=== PATIENT | male | born 1980 | race African-American/Black ===

== ENCOUNTER 2025-06-07 15:00 | Outpatient (REF) | payer OTHER, SELFPAY ==
--- OUTSIDE RECORDS SUMMARY | 2025-06-02 21:34 | XMS_ITS | Encounter Summary ---
Author Organization [facility] Address [address] [place] [address] Care Team Providers Care Valve And Regulator Repairer Name Role Phone Physician, No Pcp Primary Care Provider Unavaila ble Reason for Visit * Reason Comments Hand Injury Encounter Details Date Type Department Care Team (Late st Contact Info) Description 06/02/2025 10:34 PM EDT - 06/03/2025 12:[address] [facility] Emergency [address] [place] [id number] Clover Bains MD [address] [place] [address] Puncture wound of left hand without foreign body, initial encounter (Primary Dx) Discharge Disposition: Home or Self Care Social History Tobacco Use Types Packs/Day Years Used Date Smoking Tobacco: Never Assessed Sex and Gender Information Value Date Recorded Sex Assigned at Not on file Legal Sex Male 10:32 PM EDT Gender Identity Not on file Sexual Orientation Not on file documented as of this encounter Last Filed Vital Signs Vital Sign Reading Time Taken Comments Blood Pressure 131/84 06/02/2025 10:38 PM EDT Pulse 78 06/02/2025 10:38 PM EDT Temperature 36.3 C (97.3 F) 06/02/2025 10:38 PM EDT Respiratory Rate 16 06/02/2025 10:38 PM EDT Oxygen Saturation 98% 06/02/2025 10:38 PM EDT Inhaled Oxygen Concentration - - Weight 99.8 kg (220 lb) 06/02/2025 10:38 PM EDT Height 177.8 cm (5' 10 ) 06/02/2025 10:38 PM EDT Body Mass Index 31.57 06/02/2025 10:38 PM EDT documented in this encounter Functional Status * Calculated C-SSRS Risk Score (Lifetime/Recent) Answer Date of Assessment Author No Risk Indicated 06/02/2025 10:38 PM EDT Jael Palmer RN * [place] Suicide Severity Rating Scale (Screener/Recent Self-Report) Question Answer Date of Assessment Author 1. Wish to be (Past 1 Month) No 025 10:38 PM EDT Jael Camarillo RN documented as of this encounter Discharge Instructions * Discharge Instructions* Clover Bains MD - 06/02/2025 11:53 PM EDT Your work-up in the emergency department showed a puncture wound to your left hand . At this time you do not require admission to the hospital. You should follow-up with a primary care physician as soon as possible to review your labs/imaging and discuss any non-emergent findings from your visit today that may require further testing as an outpatient. Contact information to any follow up provider/specialist is provided above. Call as soon as possible to coordinate follow up. If you were prescribed any medications, please take as directed. * Attachments The following attachments cannot be sent through Care Everywhere. * Puncture Wounds (Moroccan) * Wound Check (Moroccan) documented in this encounter Medications at Time of Discharge neomycin-bacitra juan ramon-polymyxin B (NEOSPORIN) ointment Apply topically 2 (two) times a day for 10 days. 15 g 06/02/2025 documented as of this encounter Ordered Prescriptions Prescription Sig Dispense Quantity Refills Last Filled Start Date End Date neomycin-bacitraci n-polymyxin B (NEOSPORIN) ointment Apply topically 2 (two) times a day for 10 days. 15 g 06/02/2025 documented in this encounter Discharge Disposition Disposition Code Departure Means Destination Comment s Home or Self Care Patient seen and dcd by provider. This RN did not take part in patient's care. documented in this encounter Progress Notes * Jael Camarillo RN - 06/02/2025 10:35 PM EDT Pt states he shot his left hand with a nail gun today. Pt states nail was about 3.5in long. Pt states nail went into the palm of his hand, denies nail penetrating through hand/no exit wound. Pt states he removed the nail himself. Pt currently has dressing on hand. * Clover Bains MD - 06/02/2025 10:32 PM EDT Patient Name: Cody Parrish Date and Time of Assessment: 10:49 PM EDT 06/02/25 Patient : 1980 Patient's PMD: No primary care provider on file. Chief Complaint Patient presents with ??? Hand Injury HPI: 45 yo male presents after left hand puncture wound. He accidentally puncture his left hand with a nail gun. Nail went through the lateral thumb area, not through and through. He does not recall a recent tetanus shot. PHYSICAL EXAM: Visit Vitals BP 131/84 (BP Location: Right arm, Patient Position: Sitting) Pulse 78 Temp 36.3 ??C (97.3 ??F) (Oral) Resp 16 Ht 1.778 m (70 ) Wt 99.8 kg (220 lb) SpO2 98% BMI 31.57 kg/m?? BSA 2.17 m?? General: calm, cooperative HEENT: NC/AT Cardio: RRR, no MRG Resp: no respiratory distress, lungs CTAB Abd: Soft, non-tender, non-distended Ext: No edema, warm, well perfused Neuro: AAOx3, no focal deficits MSK: Left hand with small puncture on thenar eminence, no foreign body palpated, minimal swelling or bleeding MEDICAL DECISION MAKING: Patient presents today for nail gun injury on hand Vital signs reviewed On initial evaluation, patient is in nad Physical exam notable for above. Differential diagnosis: Puncture wound, foreign body, laceration, deep tendon/bony injury Initial Plan: Based on the patient's presentation today, we will obtain xray, update tetanus, clean wound and discharge with topical antibiotics. Considered oral antibiotics but wound appears clean, minimal opening/damage, minimal swelling. Cleaned wound with alcohol swab. Will encourage patient to have wound reevaluated in 2 days to see if he needs more than topical antibiotics. Encouraged using peroxide or ot her implement to continue cleaning at home. Social determinants of health considered including housing follow-up social and financial support Please see ED course for my interpretation of lab results and imaging which I independently reviewed. Updates in patient care also noted accordingly. EMERGENCY DEPARTMENT COURSE AND TREATMENT: Available prior records were reviewed. Patient history and allergies reviewed. Nursing note reviewed. The diagnostic results contained in this document reflect the information available to the physician at the time of the patient encounter. Final results, when completed, will be found in the patient's hospital chart. Medications - No data to display Clinical Impressions as of 06/02/252355 Puncture wound of left hand without foreign body, initial encounter Procedures CLINICAL IMPRESSION: Final diagnoses: None DISPOSITION: Data Unavailable Clover Bains MD 06/02/252249 Clover Bains MD 06/02/252299 Clover Bains MD 06/02/252354 documented in this encounter Plan of Treatment Not on file documented as of this encounter Procedures Procedure Name Priority Date/Time Associated Diagnosis Comments XR HAND 3+ VIEWS LEFT STAT 06/02/2025 11:46 PM EDT documented in this encounter Results * XR Hand 3+ Views Left (06/02/2025 11:46 PM EDT) Anatomical Region Laterality Modality Upper Extremities, Hand Left [facility] 06/03/2025 8:18 AM EDT Impressions 06/03/2025 8:21 AM EDT There is no evidence of bony injury. Soft tissue swelling with lucencies consistent with a puncture wound are present between the first and second metacarpals. There is no radiopaque foreign body. Code 37389 -------- FINAL REPORT -------- Dictated By: Bernard Diaz Dictated Date: 06/03/2025 08:18 ET Assigned Physician: Bernard Diaz Reviewed and Electronically Signed By: Bernard Diaz Signed Date: 06/03/2025 08:21 ET Workstation ID: [id number] Transcribed By: Self Edit Transcribed Date: 06/03/2025 08:18 ET Narrative 06/03/2025 8:21 AM EDT HISTORY: The patient is a 45-year-old male with a nail gun injury to the palm of his left hand. FINDINGS: AP, lateral, and oblique views of the left hand are obtained. The study demonstrates no fracture, dislocation, arthritic change, or other bony abnormality. There is swelling and irregularity in the soft tissues between the first and second metacarpals, with soft tissue lucencies, consistent with a puncture wound. No radiopaque foreign body is seen. Procedure Note Bernard Diaz MD - 06/03/2025 HISTORY: The patient is a 45-year-old male with a nail gun injury to thepalm of his left hand. FINDINGS: AP, lateral, and oblique views of the left hand are obtained.The study demonstrates no fracture, dislocation, arthritic change, orother bony abnormality. There is swelling and irregularity in the softtissues between the first and second metacarpals, with soft tissuelucencies, consistent with a puncture wound. No radiopaque foreign body isseen. IMPRESSION: There is no evidence of bony injury. Soft tissue swelling with lucenciesconsistent with a puncture wound are present between the first and secondmetacarpals. There is no radiopaque foreign body. Code 32686 -------- FINAL REPORT -------- Dictated By: Bernard Diaz Dictated Date: 06/03/2025 08:18 ET Assigned Physician: Bernard Diaz Reviewed and Electronically Signed By: Bernard Diaz Signed Date: 06/03/2025 08:21 ET Workstation ID: [id number] Transcribed By: Self Edit Transcribed Date: 06/03/2025 08:18 ET us Clover Bains MD IMG XR PROCEDURES Final Result documented in this encounter Visit Diagnoses Diagnosis Puncture wound of left hand without foreign body, initial encounter- Primary documented in this encounter Care Teams Valve And Regulator Repairer Relationship Specialty Start Date End Date Physician, No Pcp PCP - General 06/02/25 documented as of this encounter
--- OUTSIDE RECORDS SUMMARY | 2025-06-07 16:42 | XMS_ITS | Patient Health Record ---
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
--- OUTSIDE RECORDS SUMMARY | 2025-06-07 16:42 | XMS_ITS | Clinical Summary ---
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 15 g 06/12/20 25 Active Encounters Date Type Department Care Team Description 06/02/2025 10:34 PM EDT - 06/03/2025 12:[address] [facility] [address] [place] [address] Clover Bains MD Puncture wound of left hand without foreign body, initial encounter (Primary Dx) Discharge Disposition: Home or Self Care from Last 3 Months Immunizations Immunization Administration Dates Next Due Tdap Tetanus diptheria acell ular pertussis (Boostrix; Adacel) 7yo and older 06/02/2025 Social History Tobacco Use Types Packs/Day Years Used Date Smoking Tobacco: Never Assessed Sex and Gender Information Value Date Recorded Sex Assigned at Not on file Legal Sex Male 10:32 PM EDT Gender Identity Not on file Sexual Orientation Not on file Last Filed Vital Signs Vital Sign Reading [...] Mass Index 31.57 06/02/2025 10:38 PM EDT Plan of Treatment Health Maintenance Due Date Last Done Comments Hepatitis B Vaccines (1 of 3 - 19+ 3-dose series) 02/03/2000 HPV Vaccines (1 - 3-dose SCD M series) 02/03/2008 Depression Screening 08/05/2024 COVID-19 Vaccine (1 - 2023-2 5 season) 2025 Influenza Vaccine (#1) 2025 Cholesterol Screening (Lipid Panel) 06/02/2025 HIV Screening 06/02/2025 Hepatitis C Screening 06/02/2025 Social Influencers of Health Screening 06/02/2025 DTaP,Tdap,and Td Vaccines (2 - Td or Tdap) 06/02/2035 06/02/2025 RSV Immunization Adult Patie nts (1 - 1-dose 75+ series) 02/03/2056 HIB Vaccines Aged Out No longer eligi ble based on patient's age to complete this topic Hepatitis A Vaccines Aged Out No long er eligible based on patient's age to complete this topic IPV Vaccines Aged Out No longer eligi ble based on patient's age to complete this topic MMR Vaccines Aged Out No longer eligi ble based on patient's age to complete this topic Meningococcal ACWY Vaccine Aged Out N o longer eligible based on patient's age to complete this topic Meningococcal B Vaccine Aged Out No l onger eligible based on patient's age to complete this topic Pneumococcal Vaccine: Pediat rics (0 to 5 Years) and At-Risk Patients (6 to 49 Years) Aged Out No longer eligi ble based on patient's age to complete this topic RSV Immunization Patients Un tamia 20 months Aged Out No longer eligible b ased on patient's age to complete this topic Varicella Vaccines Aged Out No longer eligible based on patient's age to complete this topic Procedures Procedure Name Priority Date/Time Associated Diagnosis Comments XR HAND 3+ VIEWS LEFT STAT 06/02/2025 11:46 PM EDT from Last 3 Months Results * XR Hand 3+ Views Left (06/02/2025 11:46 PM EDT) Anatomical Region Laterality Modality Upper Extremities, Hand [facility] 06/03/2025 8:18 AM EDT Impressions 06/03/2025 8:21 AM EDT There is no evidence of bony injury. Soft tissue swelling with lucencies consistent with a puncture wound are present between the first and second metacarpals. There is no radiopaque foreign body. Code 16180 -------- FINAL REPORT -------- Dictated By: Bernard Diaz Dictated Date: 06/03/2025 08:18 ET Assigned Physician: Bernard Diaz Reviewed and Electronically Signed By: Bernard Diaz Signed Date: 06/03/2025 08:21 ET Workstation ID: [id number] Transcribed By: Self Edit Transcribed Date: 06/03/2025 [...] There is no radiopaque foreign body. 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
[2025-06-08 05:33] LABS: Syphilis Screen Nonreactive (Nonreactive)
[2025-06-08 10:13] LABS: CT PCR Urine NOT DETECTED (Not Detect.); NG PCR Urine NOT DETECTED (Not Detect.)
[2025-06-13 11:09] LABS: Testosterone, Free 40.5 pg/mL (35.0-155.0)
== END 2025-06-07 15:01 | disposition home or self-care (01) ==
LOC: HO.HKASLDS 15:00
PROVIDERS: PCP Student in an Organized Health Care Education/Training Program; Visit Provider Student in an Organized Health Care Education/Training Program
DX: Z00.00 Encounter for general adult medical examination without abnormal findings (principal); R10.9 Unspecified abdominal pain; F17.210 Nicotine dependence, cigarettes, uncomplicated; N52.9 Male erectile dysfunction, unspecified; G47.00 Insomnia, unspecified; R06.83 Snoring
CPT/HCPCS: 84402; 84403; 86780; 87491; 87591; 96127; 99202

== ENCOUNTER 2025-06-07 15:00 | Outpatient (AMB) | payer OTHER, SELFPAY ==
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
[2025-06-07 15:08] VITALS: BP 133/74; PULSE 91; RESP 20; TEMP 36.6; O2SAT 94; BMI 35.5
== END 2025-06-07 15:27 | disposition home or self-care (01) ==
LOC: HO.HMCFMS 15:01
PROVIDERS: Visit Provider Student in an Organized Health Care Education/Training Program
DX: G47.00 Insomnia, unspecified (principal); R06.83 Snoring; F17.200 Nicotine dependence, unspecified, uncomplicated; N52.9 Male erectile dysfunction, unspecified

== ENCOUNTER 2025-06-23 13:31 | Outpatient (REF) | payer OTHER, SELFPAY ==
[2025-06-23 14:06] LABS: MANUAL DIFF FLAG NO
[2025-06-23 18:59] LABS: Hematocrit 45.1 % (42.0-52.0); Hemoglobin 14.9 g/dl (14.0-18.0); Imm Gran Abs Auto 0.01 X10*3/uL (0.00-0.03); Imm Gran Pct Auto 0.1 % (0.0-0.4); Lymphocytes Absolute Auto 3.2 X10*3/uL (1.2-4.9); Mean Corpuscular HGB Conc 33.0 g/dl (31.0-36.0); Mean Corpuscular Hemoglobin 31.0 pg (27.0-33.0); Mean Corpuscular Volume 93.8 fL (80.0-98.0); NRBC Abs Auto 0.000 X10*3/uL (0.0-0.012); NRBC Pct Auto 0.0 /100WBC (0.0-0.2); Platelet Count 266 X10*3/uL (160-400); Red Blood Count 4.81 X10*6/uL (4.60-5.80); White Blood Count 10.0 X10*3/uL (4.8-10.8)
[2025-06-23 19:34] LABS: Appearance Urine Clear; Glucose Urine UA Negative (Negative); PH 7.0 (5.0-9.0); Specific Gravity - Urine 1.020 (1.005-1.025)
[2025-06-23 20:04] LABS: Alanine Aminotransferase 30 U/L (0-40); Albumin Level 4.8 g/dL (3.5-5.0); Alkaline Phosphatase 62 U/L (39-117); Anion Gap 13 (12-20); Aspartate Amino Transferase 32 U/L (5-37); Blood Urea Nitrogen 9 mg/dL (9-16); Calcium 9.7 mg/dL (8.4-10.2); Carbon Dioxide 25 mmol/L (22-29); Chloride 105 mmol/L (96-108); Cholesterol 134 mg/dL (<200); Estimated Glomerular Filt Rate > 60; HDL Cholesterol 29 mg/dL (>40); Magnesium 2.3 mg/dL (1.6-2.6); Potassium 4.0 mmol/L (3.3-5.1); Sodium 139 mmol/L (135-145); Total Protein 7.5 g/dL (6.5-8.0); Triglycerides 94 mg/dL (<150)
[2025-06-23 20:20] LABS: Folate 6.4 ng/mL (> or = 4.0); Vitamin B12 455 pg/mL (200-900)
[2025-06-24 08:08] LABS: Hemoglobin A1C 147.0355 umol/L
[2025-06-24 09:10] LABS: HBS Num1 1.60 mIU/mL (0-7.99); HBsAGNum1 0.34 S/CO (0.00-0.99); HIV Num 1 0.05 S/CO (0.00-0.99); Hepatitis B Surface Antigen Negative (Negative); ~HepC Num1 0.08 S/CO (0.00-0.79); ~Hepatitis B Surface Antibody NONREACTIVE (Nonreactive); ~Hepatitis C Antibody Nonreactive (Nonreactive)
[2025-06-27 17:03] LABS: VITAMIN D (1,25 OH) D3 56 pg/mL; Vit D (1,25-Dihydroxy) Total 56 pg/mL (18-72); Vitamin D (1,25 OH) D2 <8 pg/mL
== END 2025-06-23 13:32 | disposition home or self-care (01) ==
LOC: HO.HKASLDS 13:31
PROVIDERS: PCP Student in an Organized Health Care Education/Training Program; Visit Provider Student in an Organized Health Care Education/Training Program
DX: Z13.9 Encounter for screening, unspecified (principal); Z28.82 Immunization not carried out because of caregiver refusal; R79.89 Other specified abnormal findings of blood chemistry; B35.3 Tinea pedis; B35.1 Tinea unguium; N52.9 Male erectile dysfunction, unspecified; G47.00 Insomnia, unspecified; F17.210 Nicotine dependence, cigarettes, uncomplicated; Z79.899 Other long term (current) drug therapy
CPT/HCPCS: 36415; 80053; 80061; 81003; 82607; 82652; 82746; 83036; 83735; 84443; 85025; 86706; 86803; 87340; 87389; 90471; 96127; 99212

== ENCOUNTER 2025-06-23 13:31 | Outpatient (AMB) | payer OTHER, SELFPAY ==
[2025-06-23 13:36] VITALS: BP 129/80; PULSE 83; RESP 20; TEMP 36.8; O2SAT 94; BMI 34.9
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
--- OUTSIDE RECORDS SUMMARY | 2025-06-24 01:33 | XMS_ITS | Patient Health Record ---
Author Organization [facility] Address [address] [place] [address] Care Team Providers Care Manager Market Name Role Phone NO, PCP Primary Care Provider [phone] Inga Santiago Unavailable [phone] Reason For Referral No Information Plan Of Treatment No Information Insurance Providers Payer Name Payer Address Payer Phone Subscriber Number Group Number Insured Name Patient Relationship to Insured Coverage Start Date Coverage End Date [place] Medicaid Standard [address] [place] [address] [id number] Cody Parrish Self - patient is the insured 4
== END 2025-06-23 13:56 | disposition home or self-care (01) ==
LOC: HO.HMCFMS 13:32
PROVIDERS: PCP Student in an Organized Health Care Education/Training Program; Visit Provider Student in an Organized Health Care Education/Training Program
DX: B35.3 Tinea pedis (principal); B35.1 Tinea unguium; R79.89 Other specified abnormal findings of blood chemistry; N52.9 Male erectile dysfunction, unspecified; G47.00 Insomnia, unspecified; F17.200 Nicotine dependence, unspecified, uncomplicated; Z23 Encounter for immunization

== ENCOUNTER 2025-07-08 16:05 | Outpatient (AMB) | payer OTHER, SELFPAY ==
--- NOTE | 2025-07-08 16:08 | A.OFFPC_ITS ---
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 Prediabetes: Recent lab work revealed a hemoglobin A1c of 5.7%, which falls into the prediabetic range. Low high-density lipoprotein cholesterol: The patient's HDL cholesterol is low at 29 mg/dL, below the recommended level of 40 mg/dL. Other lipid panel results are within normal limits, with a total cholesterol of 134 mg/dL, LDL of 87 mg/dL, and triglycerides of 94 mg/dL. Social History: - Nutrition: The patient reports eating eggs and cheese daily. - Exercise: He has been advised to incor porate some exercise. Diagnostic Results: - CBC: White blood cells, red blood cell s, hemoglobin, hematocrit, and platelets are normal. - CMP: Sodium, potassium, kidney functio n, and liver function tests are normal. - Hemoglobin A1c: 5.7%. - Lipid Panel: Total cholesterol 134 mg/ dL, LDL cholesterol 87 mg/dL, triglycerides 94 mg/dL, and HDL cholesterol 29 mg/dL. - Other labs: Calcium, magnesium, Vitami n D, folate, and thyroid levels are good. - Urinalysis: Negative. - Infectious Disease Screening: Negative for Hepatitis B, Hepatitis C, and HIV. Past Medical History Health Maintenance - The patient's recent lab work was revi ewed, including CBC, CMP, lipid panel, HgbA1c, vitamin D, folate, thyroid function, and infectious disease screening. - He was counseled on lifestyle modifica tions to address his prediabetes and low HDL, including increasing exercise and dietary changes such as eating more greens and reducing daily intake of eggs and cheese. - Follow-up is recommended in 3 months t o recheck lab values. 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 1. Little interest or pleasure in doing things: not at all 2. Feeling down, depressed, or hopeless: not at all 3. Trouble falling or staying asleep, or sleeping too much: not at all 4. Feeling tired or having little energy: not at all 5. Poor appetite or overeating: not at all 6. Feeling bad about yourself - or that you are a failure or have let yourself or your family down: not at all 7. Trouble concentrating on things, such as reading the newspaper or watching television: not at all 8. Moving or speaking so slowly that other people could have noticed. Or the opposite - being so fidgety or restless that you have been moving around a lot more than usual: not at all 9. Thoughts that you would be better off or of hurting yourself in some way: not at all Total score: 0 Depression Screening Interpretation: Negative Depression Screening Done: Yes 81246 - PHQ-9 Billing: Yes Source: Developed by Drs. Live Underwood, Svetlana Albrecht, Moises Candelario and colleagues, with an educational syd from [employer]. Thrive Questionnaire Date Thrive assessed: 06/07/25 I am a: Patient What is your living situation today?: I have a steady place to live Within the past 12 months, did the food you bought not last and you didn't have the money to get more?: Sometimes True Within the past 12 months, did you worry whether your food would run out before you got money to buy more?: Sometimes True Do you have trouble paying for medicines?: No Do you have trouble getting transportation to medical appointments?: No Do you have trouble paying your heating and electricity bill?: No Do you have trouble taking care of your child, family member or friend?: No Are you currently unemployed and looking for a job?: No Are you interested in more education?: No Currently or been in a relationship where the following occur: No concerns reported THRIVE Score: 2 AUDIT C Alcohol Use Questionnaire (AUDIT-C) 1. How often do you have a drink containing alcohol?: Monthly or less 2. How many drinks containing alcohol do you have on a typical day when you are drinking?: 1 or 2 3. How often do you have six or more drinks on one occasion?: Never Total Score: 1 DICK-7 AMB Questionnaire DICK-7 Date DICK - 7 assessed: 06/23/25 Feeling nervous, anxious, or on edge: 0 = Not at all Not being able to stop or control worryin = Not at all Worrying too much about different things: 0 = Not at all Trouble relaxin = Not at all Being so restless that it is hard to sit still: 0 = Not at all Becoming easily annoyed or irritable: 0 = Not at all Feeling afraid as if something awful might happen: 0 = Not at all Total DICK-7 score (0-4 normal; 5-9 mild; 10-14 moderate; 15-21 severe): 0 Source: Developed by Drs. Live Underwood, Svetlana Albrecht, Moises Candelario and colleagues, with an educational syd from [employer]. DICK-7 Assessment Billing DICK-7 Assessment Tool: DICK-7 Assessment 45528 Review of Systems Narrative Review of Systems - Constitutional: The patient reports feeling very good and denies any other complaints. 10-point ROS reviewed and negative except as noted in HPI Physical exam (Primary Care) Vital Signs: Last Vital Signs Temp 97.9 F 07/08/25 16:11 Pulse 75 07/08/25 16:11 Resp 20 07/08/25 16:11 BP 117/71 07/08/25 16:11 Pulse Ox 95 07/08/25 16:11 Oxygen Delivery Method Room Air 07/08/25 16:11 BMI result Body Mass Index 34.9 Tobacco/Smoking Status: Tobacco use Status Tobacco use date assessed 06/23/25 07/08/25 16:14 Patient Tobacco Use Status Current everyday Tobacco 07/08/25 16:14 Tobacco use type Cigarette 07/08/25 16:14 e-Cigarette/Vaping Use Never Used 07/08/25 16:14 PHQ-9: PHQ-9 Score PHQ-9: Total score 0 07/08/25 16:14 Depression Screening Interpretation: Negative Thrive Assessment: Date of Thrive Assessment Date Thrive assessed 06/07/25 07/08/25 16:14 Currently or been in a relationship where the following occur: No concerns reported Narrative Physical Exam General: Well-appearing, in no acute distress. Vital signs: Within normal limits. HEENT: Normocephalic, atraumatic. PERRLA, EOMI. Conjunctiva clear, sclera anicteric. Oropharynx clear, mucous membranes moist. TMs intact bilaterally. Neck: Supple, no lymphadenopathy, no thyromegaly, no JVD or carotid bruits. Cardiovascular: RRR, normal S1/S2, no murmurs, rubs, or gallops. Peripheral pulses 2+ and symmetric. No edema. Respiratory: Lungs clear to auscultation bilaterally, no wheezes, rales, or rhonchi. Normal effort. Abdomen: Soft, non-tender, non-distended. Normoactive bowel sounds. No hepatosplenomegaly, no masses. MSK: Full range of motion, no joint swelling or deformity. Normal gait. Skin: Warm, dry, intact. No rashes, lesions, or pallor. Neuro: Alert and oriented x3. Cranial nerves II-XII intact. Strength 5/5 throughout. Sensation intact. Reflexes 2+ symmetric. Normal coordination and gait. Psych: Appropriate mood and affect. Normal judgment and insight. Coding Level of Care Code Est Pt Level 3 (38711) Diagnoses Prediabetes R73.03 Low HDL (under 40) E78.6 Additional Codes DICK-7 Assessment Billing - DICK-7 Assessment Tool: DICK-7 Assessment 82534 ([id number]) PHQ-9 - 43720 - PHQ-9 Billing: Yes ([id number]) Assessment & Plan Assessment & Plan (1) Prediabetes: Code(s): R73.03 - Prediabetes Category: Medical (2) Low HDL (under 40): Code(s): E78.6 - Lipoprotein deficiency Category: Medical Plan Consent Patient was informed and verbally consented to the use of an ambient scribe for clinic note documentation during this visit. Plan 1. Prediabetes - The patient was informed that his hemoglobin A1c of 5.7% indicates prediabetes. - He was advised on dietary modifications, including increasing consumption of greens, to help manage his blood sugar. - A follow-up appointment in 3 months is recommended to monitor his labs. 2. Low High-Density Lipoprotein Cholesterol - The patient's HDL is low at 29 mg/dL. - To increase his HDL, he was counseled to increase his physical activity and modify his diet by reducing daily consumption of eggs and cheese while eating more greens. - A follow-up in 3 months was recommended to re-evaluate his lipid panel. Discussion Notes I reviewed the patient's recent lab results with him, noting that most values, including his CBC, CMP, and infectious disease screens, were normal. We discussed the two main findings: a hemoglobin A1c of 5.7%, which places him in the prediabetic range, and a low HDL cholesterol of 29 mg/dL. I explained that his other cholesterol numbers were excellent. We discussed lifestyle interventions, including increasing exercise and modifying his diet by reducing daily egg and cheese intake and eating more greens. We agreed on a follow-up visit in 3 months to recheck these lab values. Patient Instructions - Your recent lab results show that your blood sugar level (Hemoglobin A1c) is 5.7%, which is considered prediabetes. - Your good cholesterol (HDL) is low at 29 mg/dL; it should be above 40 mg/dL. - To improve these numbers, please try to incorporate some exercise into your routine. - Adjust your diet by eating fewer eggs and cheese every day and increasing your intake of green vegetables. - All your other lab results, including tests for infections like Hepatitis B, C, and HIV, were normal. - Please schedule a follow-up appointment in 3 months to recheck your labs. Medical Decision Making The patient is a 45-year-old male who presented to review his recent lab results. Skinner findings include a new diagnosis of prediabetes based on a hemoglobin A1c of 5.7% and low HDL cholesterol at 29 mg/dL. His other labs, including CBC, CMP, lipid profile (apart from HDL), and infectious disease screening, were unremarkable. Given that he is at the very beginning of the prediabetic range and his other metabolic markers are good, the initial management strategy is focused on lifestyle modification. He has been counseled on increasing physical activity and making dietary changes to include more vegetables and reduce daily intake of foods high in cholesterol. The plan is to monitor his response to these changes with repeat labs in 3 months to prevent progression to diabetes and to improve his cardiovascular risk profile. Total Time Statement 20 min Total time spent caring for the patient today includes pre-visit chart review, documentation, review of laboratory and diagnostic imaging results, medication reconciliation, medically necessary evaluation, counseling on diagnoses, care coordination, ordering appropriate tests and medications, review of tests performed by other providers, reporting test results to the patient, and communication with other healthcare providers.
[2025-07-08 16:11] VITALS: BP 117/71; PULSE 75; RESP 20; TEMP 36.6; O2SAT 95; BMI 34.9
== END 2025-07-08 16:19 | disposition home or self-care (01) ==
LOC: HO.HMCFMS 16:06
PROVIDERS: PCP Student in an Organized Health Care Education/Training Program; Visit Provider Student in an Organized Health Care Education/Training Program
DX: R73.03 Prediabetes (principal); E78.6 Lipoprotein deficiency

== ENCOUNTER → 2025-07-08 16:05 | Outpatient (BNVA) | payer OTHER, SELFPAY | PROVIDERS: PCP Student in an Organized Health Care Education/Training Program; Visit Provider Student in an Organized Health Care Education/Training Program | DX: Z71.2 Person consulting for explanation of examination or test findings (principal); R73.03 Prediabetes; E78.6 Lipoprotein deficiency; Z13.31 Encounter for screening for depression | CPT/HCPCS: 96127; 99212 ==